=== PATIENT | female | born 1980 | race Native Hawaiian/Other Pacific Islander ===

== ENCOUNTER 2018-04-10 06:01 | Observation (INO) | payer OTHER ==
[2018-04-06 10:54] VITALS: BMI 17.9
[2018-04-10 06:52] LABS: HEMOGLOBIN 13.7 g/dL (12.0-16.0); MEAN CELL VOLUME 89.9 fl (81.0-99.0); MEAN CORPUSCULAR HEMOGLOBIN 30.6 pg (27.0-31.0); RBC 4.48 Mil/uL (3.80-5.20); RED CELL DISTRIBUTION WIDTH 13.4 % (11.5-14.5); WHITE BLOOD COUNT 6.1 K/uL (4.8-10.8)
[2018-04-10] MEDS ORDERED: Bupivacaine HCl 0.5% PF (30 ml) Inj ONE (07:20)
[2018-04-10] MEDS ORDERED: Propofol 10 mg/ml Inj (20 ML) ONE (07:22)
[2018-04-10] MEDS ORDERED: Rocuronium 10 mg/ml (5 ml) ONE (07:22)
[2018-04-10] MEDS ORDERED: Succinylcholine 200 mg/10 ml Inj IV ONE (07:23)
[2018-04-10] MEDS ORDERED: Lidocaine 4% (Laryng-O-Jet) Kit MM ONE (07:23)
[2018-04-10] MEDS ORDERED: Lactated Ringer's 1,000 ML IV ONE ×4 (07:55→13:30)
[2018-04-10] MEDS ORDERED: Midazolam 2 MG/2 ML VIAL ONE (07:55)
[2018-04-10] MEDS ORDERED: ePHEDrine 50 mg/ml Inj ONE (07:55)
[2018-04-10] MEDS ORDERED: Dexamethasone 4 mg/1 ml ONE (08:30)
[2018-04-10] MEDS ORDERED: Desflurane Inhalation Anesthetic Liq (240 ml) ONE (09:38)
[2018-04-10] MEDS ORDERED: Neostigmine 1:1000 (1 mg/ml) Inj ONE (10:13)
[2018-04-10] MEDS ORDERED: Silver Nitrate Topical - Stick ONE (10:23)
[2018-04-10] MEDS ORDERED: Silver Nitrate Topical - Stick TOP ONE (10:25)
[2018-04-10] MEDS ORDERED: HYDROmorphone 0.5 mg/0.5 ml ISec ONE (10:57)
[2018-04-10] MEDS ORDERED: Lactated Ringer's 1,000 ML IV SCH (11:00)
[2018-04-10] MEDS: HYDROmorphone 0.5 mg/0.5 ml ISec IVP PRN ×2 (11:00→11:10)
--- NOTE | 2018-04-10 11:00 | PCM.SURG1 ---
Surgeon's Initial Post Op Note - Surgeon's Notes Surgeon: Lennie Apprentice Cosmetologist: Burgess Evans MD PGY4 Type of Anesthesia: General Endo, Local Pre-Operative Diagnosis: Endometriosis, Uterine Fibroid, Endometrioma Operative Findings: L perirectal endometriosis, L bladder endometriosis, Cervical endometriosis, Uterine fibroid/adenomatosis, L ovarian endometrioma Post-Operative Diagnosis: Endometriosis, Uterine Fibroid/adenomatosis, Endometrioma Operation Performed: Robotic assisted laparoscopic excision of endometriosis; myomectomy; Cystoscopy; B/L ureteral catheterization; Hysteroscopy; laparoscopic appendectomy Specimen/Specimens Removed: appendix; L perirectal endometriosis, L bladder endometriosis, Cervical endometriosis, Uterine fibroid/adenomatosis, L ovarian endometrioma Estimated Blood Loss: EBL {In ML}: 5 Blood Products Given: N/A Drains Used: No Drains Post-Op Condition: Good Date of Surgery/Procedure: 04/10/18 Time of Surgery/Procedure: 07:55
[2018-04-10] MEDS ORDERED: HYDROmorphone 1 mg/ml ISec ONE ×3 (11:07→13:28)
[2018-04-10] MEDS ORDERED: HYDROmorphone 0.5 mg/0.5 ml ISec IVP PRN ×2 (11:13→13:27)
[2018-04-10] MEDS ORDERED: Oxycodone/Acetaminophen 5/325 mg Tab PO PRN (11:53)
[2018-04-10 23:46] VITALS: RESP 20; O2SAT 99
[2018-04-11 06:06] VITALS: BP 101/56; PULSE 60; TEMP 98.6
--- NOTE | 2018-04-12 16:54 | PCM.OP ---
Operative Report - Operative Report Date of Surgery/Procedure: 04/10/18 Time of Surgery/Procedure: 10:00 Surgeon: Dr. Sudhir Evans Golf Shoe Spike Assembler: Dr. Anam Hogue Anesthesia/Sedation: general/Dr. Serna Pre-Operative Diagnosis: abdominal pain and endomatriosis Post-Operative Diagnosis: same Indication for Surgery: as above Operative Findings: as above Procedure/Operation Description: 1-Excision perirectal endometriosis. 2- Appendectomy. Breif History: This 37 year ols woman was already brought to the operating room and requested an intraoperative general surgery consultation. Description of the Procedure: The patient had already been broght to the operting room and the robotic procedure had been initated by Dr. Hogue ( separate dictation Dr. Hogue). After lyssa control of the robotic console the lesion was examined under videoscopy. The lesion was incised circumferentially and with blunt and sharp disssection with the aid of electrocautery it was excised en-bloc, mared and sent to pathology separately. The appendix was then retracrted anteriorly and with monopolar dessication the mesentery was incised. With 3-0 vicryl endoloops the appendix was ligarted woith three loops. The appendix was transected and sent to pathology separately. Hemostasis was deemed adeqaute. The operation was thwn turned over to Dr. Hogue (separate dictation). Estimated Blood Loss: 5 cc Complications: none Specimen: 1-perirectal lesion. 2-appendix Discharge & Condition: stable
--- NOTE | 2018-04-16 13:28 | OP ---
PROCEDURE DATE: 04/10/2018 SURGEON: Anam Hogue MD TRUCKLOAD OWNER OPERATOR: 1. Sudhir Evans MD 2. Anselmo Vasquez DO ANESTHESIOLOGIST: Geni Serna MD ANESTHETIC: General Endo PREOPERATIVE DIAGNOSES: 1. Incapacitating pelvic pain. 2. Incapacitating abdominal pain. 3. Abnormal uterine bleeding. 4. History of pelvic endometriosis. 5. History of previous failed medical surgical therapy. 6. History of severe endometriosis and pelvic adhesions. 7. Gastrointestinal and genitourinary symptoms. 8. Rule out interstitial cystitis. 9. Adenomyosis. 10 Uterine fibroid 11 left ovarian Endometrioma POSTOPERATIVE DIAGNOSES: 1. Incapacitating pelvic pain. 2. Incapacitating abdominal pain. 3. Abnormal uterine bleeding. 4. History of pelvic endometriosis. 5. History of previous failed medical surgical therapy. 6. History of severe endometriosis and pelvic adhesions. 7. Gastrointestinal and genitourinary symptoms. 8. Mild trigonitis 9. Adenomyosis. 10 Uterine fibroid 11 left ovarian Endometrioma OPERATION PERFORMED: 1. Examination under anesthesia. 2. Video_assisted hysteroscopy. 3. Cystoscopy. 4. Bilateral ureteral catheterization and injection of IC-Green dye. 5. Robotic da [place] laparoscopy. 6. Left ureterolysis. 7. Left Ovarian cystectomy 8. Multiple peritoneal biopsies and excision of endometriosis. 9. Treatment of endometriosis. 10. Excision of superficial bladder endometriosis 11. Myomectomy Dr. Evans from General Surgery was consulted to perform 1-Excision perirectal endometriosis. 2-Appendectomy procedure and he will dictate that separately. COMPLICATIONS: None. SAMPLES: left periureteral left ovarian fossa posteriorcervical perirectal anterio bladder fibroid left ovarian endometrioma DRAINS: none ESTIMATED BLOOD LOSS: Minimal. FINDINGS: Genitalia: normal, external genitalia, cervix normal without lesions or polyps. Hysteroscopy showed evidence normal appearing cavity. Cystoscopy was performed to rule out endometriosis of bladder mucosa and also interstitial cystitis, also injury. The bladder was normal with no evidence of stone, or cystitis. Positive jet flow visualized in both ureters. Slight irritation and prominent vessels were noted inthe trigone area Laparoscopy was normal, gallbladder was normal, liver edges appeared to be normal. Ascending colon and transverse were normal. The appendix appeared to be abnormal with both fibrosis and thickening. There was evidence of severe adhesions, fibrosis and endometriosis of the rectovaginal septum and attachment of the bowel to the posterior aspect of the uterus and to left adnexa. . Fallopian tubes appeared to have some inflammatory changes of adhesions, but overall appeared to be normal. The left ovary had a 4 cm endometrioma . There was also evidence of endometriosis of the rectovaginal septum in right and left perirectal areas There was also evidence of severe retroperitoneal fibrosis in the anterior left bladder area . There was also evidence of mild left hydroureter.The uterus was slightly distorted by the presence of a small fibroid. CONSENT: The patient had been thoroughly evaluated and counseled regarding pros and cons of the procedure, the reasonable alternative, and the possible complications. She understood and accepted the risks involved. Appropriate literature was provided to the patient. The patient was in understanding that given her history and presurgical exam, she knows that she was a high risk and average patient. She accepted all the risks involved and all the questions had been answered to her satisfaction. DESCRIPTION OF PROCEDURE: Initiation of the case: After adequate anesthesia was obtained, the patient was placed in the dorsal lithotomy position with extreme care of placement of the patient without hyperextension or hyperflexing the hips. At this point, the patient was prepped and draped, the surgeon was gowned and gloved. A time- out was taken according to the hospital procedure and the procedure was started. At this point, we performed the cystoscopy and bilateral ureteral catheterization. At this point we performed cystoscopy: A cystoscope was inserted into the bladder, under direct visualization and the bladder was visualized. The bladder was free of lesions, tumors. There was no evidence of interstitial cystitis, and there was only a mild amount of trigonitis. At this point, both ureters were identified and appeared to be in normal anatomical position. At this point, utilizing an open-ended 5-Latvian catheter, the left ureter was catheterized all the way to the distal ureter, and a 5 mL of IC-Green were injected into the distal ureter. Similarly, on the contralateral ureter, the ureter was catheterized all the way to the distal ureter, and a 5 mL of IC-Green were injected into the distal ureter. At this point, the stents were removed, and the hysteroscope was removed and a 16- Latvian Yao was placed into the bladder. At this point, we proceeded with a hysteroscopy: A speculum was placed in the vagina, and the anterior lip of the cervix was grasped. The cervix was dilated and a hysteroscope was inserted into the cavity. The cavity appeared to be of normal size, with no fibroids or polyps visible. At this point, we proceeded with placement of trocars and docking of the Da Monica Xi robot The surgeons were re-gowned and re-gloved, and an open laparoscopy was performed by making an incision below the umbilicus, and the fascia was incised , and the peritoneum was entered in the blunt fashion. The cannula was inserted and the abdomen was insufflated, and under direct visualization 3 additional ports were inserted, left upper quadrant, left mid quadrant and right upper quadrant. At this point, the da Monica Xi robot was brought into the field and docked, and the instruments were inserted under direct visualization. With extreme care not to injure the bowel or any other area. As per the dictation, the upper abdomen appeared to be normal with no evidence of any lesions. The pelvis had the findings described above, which included significant adhesions, fibrosis of the posterior cul-de-sac, significant endometriosis with deep endometriosis nodules. At this point, we proceeded with the left ureterolysis. The ureter appeared to dilated and it was clearly identified utilizing fluorescent technology. An incision was made on the peritoneum at the top of the pelvic brim, and incision was then carried down all the way opening the peritoneum and all the way down from the pelvic brim all the way down to the ovarian fossa extending the incision below the ovary. It was a progressive dissection where the ureter was progressively lateralized and the peritoneum medialized, thus freeing the ureter all the way down to the crossing of the uterine vessels. After this was done and the ureter was freed and lateralized and a large area of peritoneum, which had been opened up was excised and sent to pathology. At this point, after ureter had been identified, we were able to elevate the ovary and dissect it from the pelvic side wall in the ovarian fossa At this point, we proceeded with the left ovariolysis. The ovary was gently dissected and elevated off the ovarian fossa and area of fibrosis of endometriosis were exposed. At this point we proceed with the left ovarian cystectomy the surface of the endometrioma was gently cut and the healthy ovarian tissue was peeled off the endometriotic cyst. this was completely removed untouched. Extreme care was placed not to damage the healthy remaining ovary. At this point we proceed with the myomectomy A solitary fibroid had been identified by mri. The uterine serosa was cut to the level of the fibroid and the fibroid was grasped and excised. Additiona tissue that appeared adeomyotic was also excised. the uterine defect was closed with a 2.0 vlock suture and was perfectly hemostatic. At this point, we proceeded with a treatment of endometriosis and excision of endometriosis. On the left hand side, a large area of peritoneum, where containing endometriosis was excised in the ovarian fossa with the upper margin of the excision at the utero_ovarian ligament all the way down to the uterosacral ligament. Large areas of fibrosis were identified in posterior cul-de-sac and the rectovaginal space was affected with endometriosis and severe fibrosis. The rectovaginal area was then dissected and the space was opened, and we were able to dissect the rectum away from the posterior aspect of the cervix. Additional areas of endometriosis were dissected from the posterior aspect of the Uterus. At this point, Dr. Evans from General Surgery was called in and he performed an appendectomy and excsion of perirectal endometriosis , which she will dictate separately. At this point, it was checked for hemostasis and appeared to be excellent. All the endometriosis had been excised. . Once this was done, it was checked for hemostasis and appeared to be excellent. T The pelvis was irrigated. The da Monica Xi robot was removed. The abdomen desufflated. The instruments were removed. The incisions were closed in layers with 0 PDS for the fascia and 4-0 Monocryl for the skin. The patient was awakened up and taken to recovery room in excellent condition. Anam Hogue MD [facility]
== END 2018-04-11 05:55 | disposition home or self-care (01) ==
LOC: H.OPSURG 06:01 → H.PEDS 18:45
PROVIDERS: ADMIT Obstetrics & Gynecology Reproductive Endocrinology; ATTEND Obstetrics & Gynecology Reproductive Endocrinology
DX: N80.5 Endometriosis of intestine (principal); N80.0 Endometriosis of uterus; N80.8 Other endometriosis; N80.1 Endometriosis of ovary; N73.6 Female pelvic peritoneal adhesions (postinfective); N30.30 Trigonitis without hematuria; D25.9 Leiomyoma of uterus, unspecified; N80.4 Endometriosis of rectovaginal septum and vagina; N13.4 Hydroureter; N83.202 Unspecified ovarian cyst, left side; N80.3 Endometriosis of pelvic peritoneum
CPT/HCPCS: 36415; 44955; 45171; 49203; 49999; 51530; 58140; 58999; 85027; 86850; 86900; 88305; C1729; G0378; J0330; J0690; J1100; J1170; J1885; J2001; J2250; J2405; J2704; J2710; J3010; J7030; J7120